=== PATIENT | female | born 2000 | race Caucasian/White ===

== ENCOUNTER 2022-05-07 07:58 | Emergency (ER) | payer OTHER ==
[2022-05-07] MEDS ORDERED: Sodium Chloride 0.9% 1,000 ML IV STA (08:24)
[2022-05-07] MEDS ORDERED: Metoclopramide 10 MG/2 ML SDV IVPUSH ONE (08:24)
[2022-05-07] MEDS ORDERED: Sodium Chloride 0.9% 10 ML Syringe FLUSH PRN ×2 (08:24→11:15)
[2022-05-07] MEDS ORDERED: HYDROmorphone 0.5 MG/0.5 ML Syringe IVPUSH ONE (08:26)
[2022-05-07 10:43] LABS: ESTIMATED GFR > 60 mL/min (>60)
[2022-05-07] MEDS ORDERED: Iopamidol 612 MG/ML 50 ML SDV IVPUSH ONE (11:15)
[2022-05-07] MEDS ORDERED: Iopamidol 612 MG/ML 100 ML Bottle IVPUSH ONE (11:15)
[2022-05-07] MEDS ORDERED: Magnesium Citrate Solution 296 ML Bottle PO ONE (12:22)
== END 2022-05-07 13:00 | disposition home or self-care (01) ==
LOC: JD.ED 07:58
DX: R10.84 Generalized abdominal pain (principal); K59.01 Slow transit constipation; F17.210 Nicotine dependence, cigarettes, uncomplicated; Z88.0 Allergy status to penicillin; Z88.2 Allergy status to sulfonamides
CPT/HCPCS: 36415; 74018; 74177; 80053; 81001; 83690; 84703; 85025; 96361; 96374; 96375; 99284; A9270; J1170; J2765; J3490; J7030; Q9967; 99283

== ENCOUNTER 2023-01-10 09:47 | Emergency (ER) | payer BC, OTHER ==
[2023-01-10] MEDS ORDERED: Lactated Ringers 1,000 ML IV ONE ×2 (10:35→13:23)
[2023-01-10] MEDS ORDERED: diphenhydrAMINE 50 MG/ML SDV IVPUSH ONE (10:36)
[2023-01-10] MEDS ORDERED: Metoclopramide 10 MG/2 ML SDV IVPUSH ONE (10:36)
[2023-01-10] MEDS ORDERED: Iopamidol 755 Mg/ML 100 ML Bottle IVPUSH ONE (12:03)
[2023-01-10] MEDS ORDERED: Sodium Chloride 0.9% 10 ML Syringe FLUSH PRN (12:03)
[2023-01-10 12:07] LABS: ESTIMATED GFR 125 mL/min (>60)
[2023-01-10] MEDS ORDERED: Sodium Chloride 0.9% 100 ML IV SCH (12:15)
[2023-01-10 13:09] LABS: CORONAVIRUS COVID-19 NAA NEGATIVE (NEGATIVE)
[2023-01-10] MEDS ORDERED: Ketorolac 30 MG/ML SDV IVPUSH ONE (13:23)
[2023-01-10] MEDS ORDERED: Dexamethasone 4 MG/ML SDV IVPUSH ONE (13:23)
[2023-01-10] MEDS ORDERED: Potassium Chloride 20 MEQ Tab.ER PO ONE (13:25)
== END 2023-01-10 15:02 | disposition home or self-care (01) ==
LOC: JD.ED 09:47
DX: R11.2 Nausea with vomiting, unspecified (principal); Z88.0 Allergy status to penicillin; Z88.2 Allergy status to sulfonamides; Z88.1 Allergy status to other antibiotic agents; Z88.8 Allergy status to other drugs, medicaments and biological substances; Z20.822 Contact with and (suspected) exposure to COVID-19
CPT/HCPCS: 0240U; 36415; 71275; 80053; 81001; 83605; 83690; 84484; 84703; 85025; 86140; 93005; 96361; 96365; 96375; 99285; A9270; J1100; J1200; J1885; J2765; J3475; J3490; J7120; Q9967; 93010; 99284